=== PATIENT | female | born 1950 | race Caucasian/White ===

== ENCOUNTER 2017-07-22 16:36 | Emergency (ER) | payer MEDICARE ==
[~2017-07-22] VITALS: Ht 172.7 cm; Wt 108.6 kg
[2017-07-22] MEDS ORDERED: HYDR-565 PO (18:08)
[2017-07-22] MEDS ORDERED: COD30T PO (18:18)
[2017-07-22 18:33] VITALS: BP 153/79
== END 2017-07-22 18:34 | disposition home or self-care (01) ==
LOC: ER 16:36
DX: S52.122A Displaced fracture of head of left radius, initial encounter for closed fracture (principal); Z79.899 Other long term (current) drug therapy; W18.39XA Other fall on same level, initial encounter; Y93.51 Activity, roller skating (inline) and skateboarding; Y92.89 Other specified places as the place of occurrence of the external cause; Y99.8 Other external cause status
CPT/HCPCS: 29125; 73110; 99284; A4565; A6449; J7030

== ENCOUNTER 2017-11-08 08:53 | Day surgery (SDC) | payer MEDICARE ==
[~2017-11-08] VITALS: Ht 174 cm; Wt 98.2 kg
[2017-11-08 09:09] VITALS: BP 139/89
[2017-11-08] MEDS ORDERED: fentaNYL/PF 50MCG/1 ML 2ML syringe ONE (09:10)
[2017-11-08] MEDS ORDERED: MIDAZolam 5mg/5ml vial ONE ×2 (09:10→10:10)
[2017-11-08] MEDS ORDERED: CHOL10002 PO (09:25)
[2017-11-08] MEDS ORDERED: PARO-62 PO (09:25)
[2017-11-08] MEDS ORDERED: ondansetron/PF 4mg/2ml inj ONE (10:49)
[2017-11-08 11:06] VITALS: BP 111/66
[2017-11-08 11:16] VITALS: BP 111/64
[2017-11-08 11:26] VITALS: BP 113/63
[2017-11-08 11:36] VITALS: BP 117/66
== END 2017-11-08 12:05 | disposition home or self-care (01) ==
LOC: GI LAB 08:53
PROVIDERS: ATTEND Internal Medicine Gastroenterology
DX: C18.3 Malignant neoplasm of hepatic flexure (principal); K57.30 Diverticulosis of large intestine without perforation or abscess without bleeding; Z87.891 Personal history of nicotine dependence; Z72.89 Other problems related to lifestyle; Z98.890 Other specified postprocedural states; Z79.899 Other long term (current) drug therapy
CPT/HCPCS: 45380; G0500; J2250; J2405; J3010; J7030; 88305; A4620

== ENCOUNTER 2017-11-29 06:43 | Day surgery (SDC) | payer MEDICARE ==
[~2017-11-29] VITALS: Ht 172.7 cm; Wt 100.2 kg
[~2017-11-29 06:43] MED LIST: CHOL10002 PO; PARO-62 PO
[2017-11-29] MEDS ORDERED: normal saline 1000ml 1,000 ML IV PRN (07:05)
[2017-11-29 07:15] VITALS: BP 144/78
[2017-11-29] MEDS ORDERED: OMEP20CA10 PO (07:20)
[2017-11-29] MEDS ORDERED: IBUP200C74 PO (07:20)
[2017-11-29 08:02] LABS: BASOPHILS % (AUTO) 0.3 % (0-1); EOSINOPHILS # (AUTO) 0.3 X10'3 (0-0.9); EOSINOPHILS % (AUTO) 4.4 % (0-6); HEMOGLOBIN 12.5 g/dl (12.0-16.0); LYMPHOCYTES # (AUTO) 2.1 X10'3 (1.1-4.8); LYMPHOCYTES % (AUTO) 32.2 % (21-51); MEAN CORPUSCULAR HEMOGLOBIN 28.5 PG (27.0-31.0); MEAN CORPUSCULAR HGB CONC 33.9 % (33.0-36.5); MEAN CORPUSCULAR VOLUME 84.2 FL (78-98); MEAN PLATELET VOLUME 7.4 FL (7.4-10.4); MONOCYTES # (AUTO) 0.7 X10'3 (0-0.9); MONOCYTES % (AUTO) 10.1 % (2-12); NEUTROPHILS # (AUTO) 3.4 X10'3 (1.8-7.7); PLATELET COUNT 239 X10'3 (140-440); RED BLOOD COUNT 4.39 X10'6 (4.20-5.60); RED CELL DISTRIBUTION WIDTH 14.7 % (11.5-14.5); WHITE BLOOD COUNT 6.5 X10'3 (4.5-11.0)
[2017-11-29] MEDS ORDERED: midazolam 2 mg/2 ml injection IV PRN (08:20)
[2017-11-29] MEDS ORDERED: LIDOcaine 1%/PF 5ML 10 MG/ML VIAL SQ ONE (08:20)
[2017-11-29] MEDS ORDERED: fentaNYL/PF 50MCG/1 ML 2ML syringe IV PRN (08:20)
[2017-11-29] MEDS ORDERED: normal saline 1000ml 1,000 ML IV SCH (08:41)
[2017-11-29] MEDS ORDERED: heparin sodium, porcine/PF 100unit/ml 5ML syringe ONE (08:42)
[2017-11-29] MEDS ORDERED: LIDOcaine 1%/PF 5ML 10 MG/ML VIAL ONE (08:42)
[2017-11-29] MEDS ORDERED: midazolam 2 mg/2 ml injection ONE (08:43)
[2017-11-29] MEDS ORDERED: fentaNYL/PF 50MCG/1 ML 2ML syringe ONE ×2 (08:43→09:01)
[2017-11-29 09:37] VITALS: BP 137/67
[2017-11-29 09:50] VITALS: BP 135/65
[2017-11-29 10:05] VITALS: BP 125/65
[2017-11-29 10:20] VITALS: BP 130/67
[2017-11-29 10:35] VITALS: BP 130/65
[2017-11-29] MEDS ORDERED: heparin sodium, porcine/PF 100unit/ml 5ML syringe ICATH ONE (11:45)
== END 2017-11-29 10:50 | disposition home or self-care (01) ==
LOC: SSTAY O 06:43
PROVIDERS: ATTEND Radiology Diagnostic Radiology
DX: C25.0 Malignant neoplasm of head of pancreas (principal); Z79.1 Long term (current) use of non-steroidal anti-inflammatories (NSAID); Z88.5 Allergy status to narcotic agent; Z87.891 Personal history of nicotine dependence; Z72.89 Other problems related to lifestyle; Z79.899 Other long term (current) drug therapy; Z98.890 Other specified postprocedural states
CPT/HCPCS: 36415; 36561; 76937; 77001; 85025; 99152; 99153; A6219; C1788; C1894; J1642; J2001; J2250; J3010; J7030; A4620